=== PATIENT | male | born 1965 | race Caucasian/White ===

== ENCOUNTER 2020-12-31 06:02 | Day surgery (SDC) | payer OTHER ==
[2020-12-27 12:50] VITALS: BMI 26.6
[2020-12-31] MEDS ORDERED: ceFAZolin SODIUM 1 GM VIAL ONE ×2 (07:08→07:56)
[2020-12-31] MEDS ORDERED: TETRACAINE 0.5% OPHTH SOLN 2 ML BOTTLE ONE (07:09)
[2020-12-31] MEDS ORDERED: BUPIVACAINE HCL 50 ML ONE (07:09)
[2020-12-31] MEDS ORDERED: ERYTHROMYCIN 0.5% OPHTHALMIC OINTMENT 3.5 GM TUBE ONE (07:09)
[2020-12-31] MEDS ORDERED: LIDOCAINE 1%/EPI 1:100000 (20 ML MULTI DOSE VIAL) ONE (07:09)
[2020-12-31] MEDS ORDERED: POVIDONE-IODINE 5% OPHTHALMIC PREP 30 ML SOLUTION ONE (07:09)
[2020-12-31] MEDS ORDERED: MIDAZOLAM HCL 2 MG/2 ML SINGLE DOSE VIAL ONE ×2 (07:23)
[2020-12-31] MEDS ORDERED: PROPOFOL 20 ML ONE ×3 (07:23→08:30)
[2020-12-31] MEDS ORDERED: GLYCOPYRROLATE 0.2 MG/1 ML VIAL ONE (07:29)
[2020-12-31] MEDS ORDERED: DEXAMETHASONE SOD PHOSPHATE 4 MG/1 ML VIAL ONE (08:15)
[2020-12-31] MEDS ORDERED: ONDANSETRON 4 MG/2 ML VIAL ONE (08:15)
[2020-12-31] MEDS ORDERED: oxyCODONE HCL 5 MG TABLET PO PRN (10:56)
[2020-12-31 10:58] VITALS: BP 118/64; PULSE 58; TEMP 98
[2020-12-31] MEDS ORDERED: LACTATED RINGERS SOLUTION 1,000 ML IV SCH (11:00)
== END 2020-12-31 11:00 | disposition home or self-care (01) ==
LOC: FASU 06:02
PROVIDERS: ATTEND Ophthalmology
PROC: 0KX10ZZ Transfer Facial Muscle, Open Approach (ICD-10-PCS; 2020-12-31)
PROC: 0JB10ZZ Excision of Face Subcutaneous Tissue and Fascia, Open Approach (ICD-10-PCS; principal; 2020-12-31 08:12)
DX: C44.1022 Unspecified malignant neoplasm of skin of right lower eyelid, including canthus (principal)
CPT/HCPCS: 94760

== ENCOUNTER 2022-01-12 09:18 | Day surgery (SDC) | payer OTHER ==
[2022-01-07 15:56] VITALS: BMI 25.1
[2022-01-12 12:46] VITALS: BP 107/48; PULSE 56; RESP 16; TEMP 97.2
== END 2022-01-12 12:57 | disposition home or self-care (01) ==
LOC: FASU-ENDO 09:18
PROVIDERS: ATTEND Internal Medicine Gastroenterology
PROC: 0DJD8ZZ Inspection of Lower Intestinal Tract, Via Natural or Artificial Opening Endoscopic (ICD-10-PCS; principal; 2022-01-12 12:13)
DX: Z12.11 Encounter for screening for malignant neoplasm of colon (principal); Z80.0 Family history of malignant neoplasm of digestive organs; Z83.71 Family history of colonic polyps; K57.30 Diverticulosis of large intestine without perforation or abscess without bleeding